=== PATIENT | female | born 1990 | race Caucasian/White ===

== ENCOUNTER → 2017-01-10 | Outpatient (CLI) | payer OTHER ==
[~2017-01-10] MED LIST: ASPIRIN EC81 M1 PO; CALCIUM PO; DIABETA PO; FLONASE 0.05% N16 G1; FOLIC ACID1 MG PO; TENORMIN50 MG PO; VITAMIN D 22000 UNIT PO; ZOLOFT PO; ZYRTEC1 MG/1 ML PO; [UNRECOGNIZED DRUG - OTHER]
--- NOTE | ~2017-01-10 | EKG ---
PATIENT: ROSHNI DUCKWORTH UNIT #: [id number] Ventricular Rate: 78 BPM Atrial Rate: 78 BPM P-R Interval: 186 ms QRS Duration: 82 ms Q-T Interval: 388 ms QTC Calculation(Bezet): 442 ms P [place]: 43 degrees Calculated R [place]: 39 degrees Calculated T [place]: 32 degrees Diagnosis Line: Normal sinus rhythm Diagnosis Line: Otherwise normal ECG Diagnosis Line: No previous ECGs available Diagnosis Line: Confirmed by KOLTON CARBAJAL MD ([id number]) on Diagnosis Line: 01/11/2017 4:50:22 PM INTERPRETING MD: NICHOLAS
--- NOTE | ~2017-01-10 | CR97 ---
[facility] A Service of [facility] RADIOLOGY TEXT RESULTS PATIENT: ROSHNI DUCKWORTH LOCATION: [facility] : 91 UNIT #: [id number] AGE: [address]: Perez Santiago III, MD SEX: F ORDER DR: [id number] [id number] [place], [place] [address] [id number] O MR#: [id number] Acc #: [id number] NAME: ROSHNI DUCKWORTH : 1990 SEX: F STUDY DATE/TIME: 01/10/2017 9:53 UNIT: [facility] ROOM: STUDY DESCRIPTION: CR Esophagram Attending Physician: Perez Santiago III, M.D. Referring Physician: Perez Santiago III, M.D. Ordering Physician: Perez Santiago III, M.D. Primary Care Physician: Claudio Todd MEDICAL IMAGING REPORT This report is preliminary unless electronic signature is present EXAM Esophagram, 01/10/2017. INDICATION 26-year-old female presenting for preop evaluation for Lap-Band surgery. Shortness of air with activity. Obesity. Symptoms began today. TECHNIQUE Spot fluoroscopic views of the esophagus were obtained in various projections after the patient ingested gas crystals and thick and thin liquid barium on 01/10/2017. COMPARISON No comparisons. FINDINGS Notes indicate 1.1 minutes of fluoroscopy time was used in the case. 59 images from the fluoroscopy procedure were saved to the Gif[employer] system. The esophagus demonstrates an unremarkable primary stripping wave. No significant secondary or tertiary contractions. No focal mass, stricture, or mucosal abnormality. No hiatal hernia. IMPRESSION 1. Negative esophagram. 2. Notes indicate 1.1 minutes of fluoroscopy time was used in the case. 59 images from the fluoroscopy procedure were saved to the Gif[employer] system. Dictated by... Jose Koehler M.D. [facility] A Service [facility] RADIOLOGY TEXT RESULTS PATIENT: ROSHNI DUCKWORTH LOCATION: [facility] : 91 UNIT #: [id number] AGE: [address]: Perez Santiago III, MD SEX: F ORDER DR: THIS IS AN ELECTRONICALLY VERIFIED REPORT Jose Koehler M.D. at 01/10/2017 4:50 PM PHYLICIA/chloe TD: 01/10/2017 11:48 JOB #: [id number] MEDICAL IMAGING REPORT Page 1 of 1 COPY
--- NOTE | ~2017-01-10 | CR63 ---
[facility] A Service of [facility] RADIOLOGY TEXT RESULTS PATIENT: ROSHNI DUCKWORTH LOCATION: [facility] : 91 UNIT #: [id number] AGE: [address]: Perez Santiago III, MD SEX: F ORDER DR: [id number] [facility] [address] [place], [place] [address] [id number] O MR#: [id number] Acc #: [id number] NAME: ROSHNI DUCKWORTH : 1990 SEX: F STUDY DATE/TIME: 01/10/2017 8:24 UNIT: [facility] ROOM: STUDY DESCRIPTION: CR Chest 2 View Attending Physician: Perez Santiago III, M.D. Referring Physician: Perez Santiago III, M.D. Ordering Physician: Perez Santiago III, M.D. Primary Care Physician: Claudio Todd MEDICAL IMAGING REPORT This report is preliminary unless electronic signature is present EXAM Chest PA and lateral 3 views 01/10/2017 HISTORY Morbid obesity, preop laparoscopic gastric banding, shortness of breath on exertion today. Benign essential hypertension. FINDINGS PA and lateral examination of the chest upright shows a good expansion of the parenchyma with a normal distribution of the pulmonary vascularity. There is no indication of congestion, effusion, infiltrate, tumor, or nodular density. The pleural reflections and diaphragmatic contours are normal. The cardiac silhouette and mediastinal anatomy is within normal limits. IMPRESSION Normal chest. Dictated by... Phan Goss M.D. THIS IS AN ELECTRONICALLY VERIFIED REPORT Phan Goss M.D. at 01/10/2017 5:33 PM XU/harika TD: 01/10/2017 12:04 JOB #: [id number] MEDICAL IMAGING REPORT Page 1 of 1 COPY
[2017-01-10 09:59] LABS: HEMATOCRIT 41.3 % (35.0-45.0); HEMOGLOBIN 13.8 gm/dL (12.0-16.0); MEAN CELL VOLUME 85.7 FL (83-96); MEAN CORPUSCULAR HEMOGLOBIN 28.7 PG (28-34); MEAN CORPUSCULAR HGB CONC 33.4 g/dL (30-36); MEAN PLATELET VOLUME 8.6 FL (6.5-11.5); RED BLOOD COUNT 4.82 X10e (3.90-5.30); RED CELL DISTRIBUTION WIDTH 13.1 % (11.0-15.5); WHITE BLOOD COUNT 13.7 X10e3 (4.0-10.5)
[2017-01-10 10:50] LABS: ALBUMIN SERUM 4.1 g/dL (3.5-5.0); CALCIUM SERUM 9.4 mg/dL (8.4-10.2); CREATININE SERUM 0.7 mg/dL (0.6-1.4); GLOM FILT RATE Estimated 120.4 mL/min (>60); POTASSIUM 3.9 mmol/L (3.5-5.1); PROTEIN TOTAL SERUM 7.6 g/dL (6.0-8.3)
== END | disposition home or self-care (01) ==
LOC: CRAD 08:04
PROVIDERS: Surgery
DX: Z01.818 Encounter for other preprocedural examination (principal); E66.01 Morbid (severe) obesity due to excess calories
CPT/HCPCS: 36415; 71020; 74220; 80053; 80061; 84443; 85027; 93005

== ENCOUNTER → 2017-01-22 | Day surgery (SDC) | payer OTHER ==
--- NOTE | ~2017-01-22 | CR7 ---
[facility] A Service of [facility] RADIOLOGY TEXT RESULTS PATIENT: ROSHNI DUCKWORTH LOCATION: [facility] : 91 UNIT #: [id number] AGE: [address]: Perez Santiago III, MD SEX: F ORDER DR: [id number] [facility] [address] [place], [place] [address] [id number] O MR#: [id number] Acc #: [id number] NAME: ROSHNI DUCKWORTH : 1990 SEX: F STUDY DATE/TIME: 01/22/2017 9:31 UNIT: [facility] ROOM: STUDY DESCRIPTION: CR Abdomen Single AP View Attending Physician: Perez Santiago III, M.D. Ordering Physician: Perez Santiago III, M.D. Primary Care Physician: Claudio Todd MEDICAL IMAGING REPORT This report is preliminary unless electronic signature is present EXAM AP abdomen 01/22/2017 HISTORY Abdominal pain. Postop laparoscopic gastric band placement today. Morbid obesity. COMPARISON Esophagram 01/10/2017. FINDINGS The patient is rotated toward the right. Gastric band device is located in the left upper quadrant of the abdomen at or just slightly below the expected location of the esophagogastric junction. The insufflation port is presumably located in the left lower quadrant of the abdomen but is not included in the [id number]. No gross free air is identified. There is mild gaseous distension of bowel loops in the left mid abdomen. There is mild asymmetric elevation right hemidiaphragm. Lung bases appear clear. IMPRESSION 1. Gastric band device projects at or just slightly below the expected location of the esophagogastric junction. The phi angle is approximately 65.8 degrees, allowing for patient rotation toward the right. 2. The insufflation port is presumably in the left lower quadrant of the abdomen not included in the imaging field of view. Dictated by... April Shirley M.D. [facility] A Service of [facility] RADIOLOGY TEXT RESULTS PATIENT: ROSHNI DUCKWORTH LOCATION: [facility] : 91 UNIT #: [id number] AGE: [address]: Perez Santiago III, MD SEX: F ORDER DR: THIS IS AN ELECTRONICALLY VERIFIED REPORT April Shirley M.D. at 01/23/2017 7:24 AM DAVID/harika TD: 01/22/2017 11:05 JOB #: [id number] MEDICAL IMAGING REPORT Page 1 of 1 COPY
--- NOTE | ~2017-01-22 | OR ---
Unit #: [id number] #: [id number] Patient: ROSHNI DUCKWORTH [id number] [facility] [address] [place], [place] [address] [id number] O MR#: [id number] NAME: ROSHNI DUCKWORTH ROOM: Date of Procedure: 01/22/2017 Admission Date: 01/22/2017 Surgeon: Perez Santiago III, M.D. : 1990 Attending Physician: Perez Santiago III, M.D. Primary Care Physician: Claudio Todd OPERATIVE REPORT PREOPERATIVE DIAGNOSIS Chronic morbid obesity. POSTOPERATIVE DIAGNOSIS Chronic morbid obesity. SECONDARY DIAGNOSIS Anterior paraesophageal hernia. PROCEDURE PERFORMED Laparoscopic adjustable gastric banding (AP standard with regular port) and laparoscopic paraesophageal hernia repair. AQUATIC SCIENTIST Dr. David Villarreal. SPECIMENS None. COMPLICATIONS None apparent. ESTIMATED BLOOD LOSS Minimal. INDICATIONS FOR PROCEDURE This is a 26-year-old lady, who has chronic morbid obesity with a BMI of 57 and associated comorbidities of hypertension and diabetes. She has been through the bariatric program at [facility] and understands the risks and benefits of the procedure. DESCRIPTION OF PROCEDURE After consent was obtained, including the risks and benefits of slippage, erosion, port dysfunction, and possible failure of weight loss due to noncompliance, the patient was taken to the operating room and placed in the supine position. General anesthetic was administered and the abdomen was prepped and draped in standard surgical fashion. I began by making a 2 cm incision just above and to the left of the umbilicus. I used a Visiport to enter the peritoneal cavity without any difficulty. C02 pneumoperitoneum was then established. Next, I placed a 5 mm port in the right upper quadrant, a 5 mm Donal liver retractor in Unit #: [id number] #: [id number] Patient: ROSHNI DUCKWORTH the subxiphoid region to provide exposure of the gastroesophageal junction. Next, a 10 mm port was placed in the left upper quadrant and a 5 mm port was placed in the left lateral subcostal region. I began by performing an examination of the GE junction to evaluate for a hiatal hernia. We then scored the peritoneal attachments overlying the angle of His. I then opened up the clear space in the gastrohepatic ligament, and then using 2 blunt graspers, I identified the small fat pad crossing over the right crura. I swept the fat anterior to the crura off the crura and using the pars flaccida, I created a retrogastric tunnel where the blunt grasper exited at the angle of His. Once I had made this tunnel safely, I then inserted an Allergan AP band into the abdominal cavity. This adjustable gastric band was then place around the upper part of the stomach and fastened and buckled anteriorly. We then tacked the lateral fundus over the band to the proximal pouch with 2 interrupted 0 Ethibond sutures. I then used a third stitch to imbricate the excess anterior stomach by going from the lesser curvature up towards where the last stitch was placed. We then had excellent hemostasis. I removed the Donal liver retractor. We then removed the port tubing through the initial port incision. The rest of the ports were removed, and the pneumoperitoneum was released. I then left a small tail on the tubing. We then attached the port to the excess band tubing. We placed a piece of Prolene mesh along the back side of the port and used a Prolene stitch to anchor this mesh in place. We then trimmed the excess mesh so that just a small footprint of mesh was in place behind the port. I then inserted the tubing back into the abdominal cavity, and we placed the port into a small pocket that was made just inferior to where our initial port incision was made. The mesh was in direct contact with the fascia, and this will scar in place to hold the port in place. We then injected all the port sites with 0.25% plain Marcaine, and I reapproximated the skin edges with interrupted 4-0 Vicryl subcuticular sutures. Steri-strips were then applied. The patient tolerated the procedure without any problems and returned to the recovery room in stable condition. ADDENDUM After exposure of the GE junction, the patient was noted to have a small to medium size anterior paraesophageal hernia. I scored the phrenoesophageal ligament, reduced the hernia defect and after identifying both the right and left crura, I reapproximated the defect with an interrupted 0 Ethibond [id number] suture. I then proceed with the case as listed above. Dictated by... Perez Santiago III, M.D. VCL/jayant TD: 01/22/2017 22:54 JOB #: [id number] CC: Carlo Frey M.D. Unit #: [id number] #: [id number] Patient: ROSHNI DUCKWORTH OPERATIVE REPORT Page 1 of 1 X Perez Santiago III, MD X PROCEDURE OPERATIVE NOTE
== END | disposition home or self-care (01) ==
LOC: CSUR 06:23
DX: E66.01 Morbid (severe) obesity due to excess calories (principal); K44.9 Diaphragmatic hernia without obstruction or gangrene; E11.9 Type 2 diabetes mellitus without complications; I10 Essential (primary) hypertension; G91.9 Hydrocephalus, unspecified; Z68.43 Body mass index [BMI] 50.0-59.9, adult; Z91.010 Allergy to peanuts; Z79.82 Long term (current) use of aspirin; Z79.899 Other long term (current) drug therapy; Z98.51 Tubal ligation status; Z98.890 Other specified postprocedural states
CPT/HCPCS: 74000; 82947; 84703; C1781; J0330; J0690; J1650; J1885; J2250; J2405; J2710; J3010